=== PATIENT | female | born 1980 | race African-American/Black ===

== ENCOUNTER 2018-02-18 15:59 | Emergency (ER) | payer MEDICAID ==
[~2018-02-18] VITALS: Ht 165.1 cm; Wt 84.0 kg
[~2018-02-18 15:59] MED LIST: AZIT500T3 MT
[2018-02-18 16:05] VITALS: BP 129/72
== END 2018-02-18 22:30 | disposition left against medical advice (07) ==
LOC: ER 15:59
DX: R07.89 Other chest pain (principal); Z53.21 Procedure and treatment not carried out due to patient leaving prior to being seen by health care provider
CPT/HCPCS: 93005

== ENCOUNTER 2018-02-20 03:27 | Emergency (ER) | payer MEDICAID ==
[~2018-02-20] VITALS: Ht 165.1 cm; Wt 84.0 kg
[2018-02-20] MEDS ORDERED: IBUPROFEN 600MG TABLET PO STA (06:43)
[2018-02-20] MEDS ORDERED: SODIUM CHLORIDE 0.9% 1,000 ML IV ONE (06:43)
[2018-02-20 07:21] LABS: CLARITY URINE CLEAR (CLEAR); COLOR URINE YELLOW (YELLOW); KETONES URINE NEGATIVE (NEGATIVE); LEUKOCYTE ESTERASE URINE NEGATIVE (NEGATIVE); NITRITE URINE NEGATIVE (NEGATIVE); OCCULT BLOOD URINE NEGATIVE (NEGATIVE); PROTEIN URINE NEGATIVE (NEGATIVE); SPECIFIC GRAVITY URINE 1.011 (1.005-1.030); UROBILINOGEN URINE 0.2 E.U./dL (0.2-1.0)
[2018-02-20 07:52] LABS: BASOPHILS % 0.9 % (0.0-2.0); EOSINOPHILS % 5.9 % (0.0-5.0); HEMATOCRIT. 38.9 % (36.0-48.0); HEMOGLOBIN. 12.9 g/dL (12.0-16.0); MEAN CORPUSCULAR VOLUME 81.7 fL (81.0-99.0); MEAN PLATELET VOLUME 8.5 fl (7.4-10.4); MONOCYTES % 7.2 % (2.0-8.0); PLATELET 304 x1000/uL (130-400); RED BLOOD CELL COUNT 4.76 mill/uL (4.2-5.4); RED CELL DISTRIBUTION WIDTH 14.2 % (11.6-14.6)
[2018-02-20 07:57] LABS: PROTHROMBIN TIME 9.9 sec (9.1-11.1)
[2018-02-20 07:59] LABS: CHLORIDE 109 mEq/L (98-107)
[2018-02-20 08:04] LABS: *AMPHETAMINES SCREEN URINE NEGATIVE (NEGATIVE); *BARBITURATES SCREEN URINE NEGATIVE (NEGATIVE); *BENZODIAZEPINES SCREEN URINE NEGATIVE (NEGATIVE); *COCAINE SCREEN URINE NEGATIVE (NEGATIVE)
[2018-02-20 08:05] LABS: CANNABINOID URINE SCREEN NEGATIVE (NEGATIVE); METHADONE URINE SCREEN NEGATIVE (NEGATIVE); OPIATES URINE SCREEN NEGATIVE (NEGATIVE); PHENCYCLIDINE URINE SCREEN NEGATIVE (NEGATIVE)
[2018-02-20 08:07] LABS: ETHANOL BLOOD < 10 mg/dL
[2018-02-20 10:20] VITALS: BP 122/72
== END 2018-02-20 10:58 | disposition home or self-care (01) ==
LOC: ER 03:27
DX: R07.9 Chest pain, unspecified (principal); R51 Headache; R06.02 Shortness of breath; R11.10 Vomiting, unspecified
CPT/HCPCS: 36415; 71045; 80053; 80305; 81003; 81025; 83880; 84484; 85025; 85610; 93005; 96360; 99284; G0482; J7030

== ENCOUNTER 2018-04-20 04:13 | Emergency (ER) | payer MEDICAID ==
[~2018-04-20] VITALS: Ht 165.1 cm; Wt 89.8 kg
[2018-04-20 07:14] LABS: BASOPHILS % 0.5 % (0.0-2.0); CHLORIDE 105 mEq/L (98-107); EOSINOPHILS % 1.9 % (0.0-5.0); HEMATOCRIT. 40.4 % (36.0-48.0); HEMOGLOBIN. 13.4 g/dL (12.0-16.0); LYMPHOCYTES % 19.8 % (20.0-50.0); MEAN CORPUSCULAR HEMOGLOBIN 26.7 pg (28.0-32.0); MEAN CORPUSCULAR VOLUME 80.7 fL (81.0-99.0); MEAN PLATELET VOLUME 8.5 fl (7.4-10.4); MONOCYTES % 5.6 % (2.0-8.0); NEUTROPHILS % 72.2 % (40.0-76.0); PLATELET 382 x1000/uL (130-400); RED BLOOD CELL COUNT 5.01 mill/uL (4.2-5.4); RED CELL DISTRIBUTION WIDTH 13.8 % (11.6-14.6)
[2018-04-20 09:36] LABS: CHLORIDE 107 mEq/L (98-107)
[2018-04-20 10:24] VITALS: BP 117/75
== END 2018-04-20 12:32 | disposition home or self-care (01) ==
LOC: ER 04:36
DX: R07.89 Other chest pain (principal); M79.605 Pain in left leg; J45.909 Unspecified asthma, uncomplicated; Z98.890 Other specified postprocedural states
CPT/HCPCS: 36415; 71045; 80048; 80053; 83880; 84484; 85025; 85379; 93005; 93970; 99284; Z7610

== ENCOUNTER 2019-03-19 10:37 | Emergency (ER) | payer MEDICAID ==
[~2019-03-19] VITALS: Ht 165.1 cm; Wt 80.0 kg
[2019-03-19] MEDS ORDERED: ACETAMINOPHEN 325MG TABLET PO ONE (12:45)
[2019-03-19 14:57] VITALS: BP 122/70
== END 2019-03-19 14:58 | disposition home or self-care (01) ==
LOC: ER 10:37
DX: J10.1 Influenza due to other identified influenza virus with other respiratory manifestations (principal)
CPT/HCPCS: 87804; 99283

== ENCOUNTER 2021-08-12 23:47 | Emergency (ER) | payer MEDICAID ==
[~2021-08-12] VITALS: Ht 165.1 cm; Wt 73.0 kg
[2021-08-12 23:58] VITALS: BP 122/76
[2021-08-13] MEDS ORDERED: ACETAMINOPHEN 325MG TABLET PO ONE (02:00)
[2021-08-13] MEDS ORDERED: IBUP-2029 MT (03:54)
== END 2021-08-13 04:22 | disposition home or self-care (01) ==
LOC: ER 23:47
DX: S93.691A Other sprain of right foot, initial encounter (principal); W50.2XXA Accidental twist by another person, initial encounter; Y93.89 Activity, other specified; Y92.89 Other specified places as the place of occurrence of the external cause; Y99.8 Other external cause status; J45.909 Unspecified asthma, uncomplicated; Z98.890 Other specified postprocedural states
CPT/HCPCS: 73630; 81025; 99283; Z7610

== ENCOUNTER 2021-10-14 23:42 | Emergency (ER) | payer MEDICAID ==
[~2021-10-14] VITALS: Ht 165.1 cm; Wt 85.2 kg
[~2021-10-14 23:42] MED LIST changes: +IBUP-2029 MT
[2021-10-14 23:49] VITALS: BP 115/82
== END 2021-10-15 06:09 | disposition left against medical advice (07) ==
LOC: ER 23:42
DX: Z53.21 Procedure and treatment not carried out due to patient leaving prior to being seen by health care provider (principal)